=== PATIENT | female | born 1965 | race Caucasian/White ===

== ENCOUNTER 2024-09-24 18:11 | Inpatient (IN) | payer BC ==
[~2024-09-24] VITALS: Ht 165.1 cm; Wt 66.7 kg
[2024-09-24] MEDS ORDERED: ADENOSINE 6 MG/2 ML SYR IV ONE ×2 (18:28→19:10)
[2024-09-24] MEDS ORDERED: OXYMETAZOLINE NASAL 0.05% 15 ML SPRAY NS ONE (18:40)
[2024-09-24] MEDS ORDERED: TRANEXAMIC ACID 1,000 MG/10 ML VIAL ONE (18:41)
[2024-09-24] MEDS ORDERED: LIDOCAINE 4% TOPICAL 50 ML BOTTLE ONE (18:43)
[2024-09-24] MEDS: OXYMETAZOLINE NASAL 0.05% 15 ML SPRAY NS ONE (18:48)
[2024-09-24] MEDS: IV NORMAL SALINE 1000 ML BAG IV ONE (18:48)
[2024-09-24] MEDS: TRANEXAMIC ACID 1,000 MG/10 ML VIAL IR ONE (18:48)
[2024-09-24] MEDS: LIDOCAINE 4% TOPICAL 50 ML BOTTLE TP ONE (18:49)
[2024-09-24] MEDS: ADENOSINE 6 MG/2 ML SYR IV ONE ×2 (18:49→19:35)
[2024-09-24] MEDS ORDERED: PANTOPRAZOLE SODIUM 40 MG VIAL ONE (18:55)
[2024-09-24] MEDS ORDERED: TRAZ-257 PO (19:05)
[2024-09-24] MEDS ORDERED: CHOL5POW PO (19:05)
[2024-09-24] MEDS ORDERED: BUSP5TAB3 PO (19:05)
[2024-09-24] MEDS ORDERED: ACET325T53 PO (19:05)
[2024-09-24] MEDS ORDERED: ALBU2.5V38 NEB (19:05)
[2024-09-24] MEDS ORDERED: THIA100T88 PO (19:05)
[2024-09-24] MEDS ORDERED: FOLI1TAB27 PO (19:05)
[2024-09-24] MEDS ORDERED: PANT40TA49 PO (19:05)
[2024-09-24] MEDS ORDERED: FURO-151 PO (19:05)
[2024-09-24] MEDS ORDERED: LACT10SO58 PO (19:05)
[2024-09-24] MEDS ORDERED: ZINC OXIDE 10% TP (19:05)
[2024-09-24] MEDS ORDERED: ONDA4TAB5 PO (19:05)
[2024-09-24] MEDS ORDERED: MAGN400T52 PO (19:05)
[2024-09-24] MEDS ORDERED: RIFA550T PO (19:05)
[2024-09-24] MEDS ORDERED: LACT-179 PO (19:05)
[2024-09-24] MEDS ORDERED: SPIR50TA5 PO (19:05)
[2024-09-24 19:07] LABS: CALCIUM 8.9 mg/dL (8.5-10.1); CARBON DIOXIDE 23 mmol/L (21-32); CHLORIDE 100 mmol/L (98-107); CREATININE 1.1 mg/dL (0.6-1.3); GLUCOSE 136 mg/dL (74-106); POTASSIUM 3.7 mmol/L (3.5-5.1); SODIUM SERUM 135 mmol/L (136-145); UREA NITROGEN, BLOOD 11 mg/dL (7-18)
[2024-09-24] MEDS: PANTOPRAZOLE SODIUM IV 80 MG in IV DEXTROSE 5% 100 ML IV ONE (19:10)
[2024-09-24 19:12] LABS: BASOPHILS % (AUTO) 0.5 % (0.0-2.0); EOSINOPHILS # (AUTO) 0.1 K/uL (0.0-0.7); EOSINOPHILS % (AUTO) 1.3 % (0.0-7.0); LYMPHOCYTES # (AUTO) 1.1 K/uL (0.8-4.8); LYMPHOCYTES % (AUTO) 12.4 % (20.5-51.5); MEAN CORPUSCULAR HEMOGLOBIN 30.5 uug (24.7-32.8); MEAN CORPUSCULAR HGB CONC 35 g/dL (32.3-35.6); MEAN CORPUSCULAR VOLUME 88.4 fL (75.5-95.3); MONOCYTES # (AUTO) 1.2 K/uL (0.1-1.30); MONOCYTES % (AUTO) 14.4 % (0.0-11.0); NEUTROPHILS # (AUTO) 6.1 K/uL (1.8-8.9); NEUTROPHILS % (AUTO) 71.4 % (38.5-71.5); PLATELET COUNT (AUTO) 159 K/uL (179-408); RED CELL DISTRIBUTION WIDTH 19.2 % (12.3-17.7); WHITE BLOOD COUNT (AUTO) 8.6 K/uL (3.8-11.8)
[2024-09-24 19:14] LABS: HEMATOCRIT 19.3 % (31.2-41.9); HEMOGLOBIN 6.7 g/dL (10.9-14.3); RED BLOOD CELL COUNT(AUTO) 2.18 MIL/uL (3.63-4.92)
[2024-09-24 19:16] LABS: ALANINE AMINOTRANSFERASE 11 U/L (14-59); ALBUMIN 2.4 g/dL (3.4-5.0); ALKALINE PHOSPHATASE 134 U/L (50-136); ASPARTATE AMINOTRANSFERASE 48 U/L (15-37); BILIRUBIN,DIRECT 1.9 mg/dL (0.0-0.2); BILIRUBIN,TOTAL 3.8 mg/dL (0.2-1.0); LIPASE 238 U/L (16-77); TOTAL PROTEIN, SERUM 5.7 g/dL (6.4-8.2)
[2024-09-24 19:30] LABS: LACTIC ACID 2.8 mmol/L (0.4-2.0)
[2024-09-24] MEDS ORDERED: levoFLOXacin 750MG/D5W 150 ML IV ONE (20:52)
[2024-09-24] MEDS: levoFLOXacin 750 MG/D5W 150 ML PIGGYBACK IV ONE (21:10)
[2024-09-24] MEDS ORDERED: REMEDY ESSENTIAL ZINC PASTE 113 GM TP PRN (21:15)
[2024-09-24] MEDS ORDERED: ONDANSETRON 4 MG/2 ML VIAL IV PRN (21:15)
[2024-09-24 22:28] LABS: HEMATOCRIT 16.8 % (31.2-41.9); HEMOGLOBIN 5.8 g/dL (10.9-14.3)
[2024-09-24 23:29] VITALS: O2SAT 100
[2024-09-25] VITALS (8 sets, daily range): BP systolic 98–117; BP diastolic 47–84; TEMP 98–99.5; O2SAT 96–100
[2024-09-25] MEDS ORDERED: OCTREOTIDE ACETATE 500 MCG/1 ML VIAL ONE (01:49)
[2024-09-25] MEDS: OCTREOTIDE ACETATE DRIP 1,250 MCG in IV NORMAL SALINE 250 ML IV ONE (03:14)
[2024-09-25] MEDS: diphenhydrAMINE 25 MG CAP PO PRN (03:55)
[2024-09-25] MEDS: PANTOPRAZOLE SODIUM 40 MG TABLET.DR PO SCH (08:34)
[2024-09-25 09:18] LABS: BASOPHILS % (AUTO) 0.6 % (0.0-2.0); EOSINOPHILS # (AUTO) 0.2 K/uL (0.0-0.7); EOSINOPHILS % (AUTO) 2.3 % (0.0-7.0); HEMATOCRIT 25.4 % (31.2-41.9); HEMOGLOBIN 8.8 g/dL (10.9-14.3); LYMPHOCYTES # (AUTO) 1.4 K/uL (0.8-4.8); LYMPHOCYTES % (AUTO) 19.6 % (20.5-51.5); MEAN CORPUSCULAR HEMOGLOBIN 30.4 uug (24.7-32.8); MEAN CORPUSCULAR HGB CONC 35 g/dL (32.3-35.6); MEAN CORPUSCULAR VOLUME 87.2 fL (75.5-95.3); MONOCYTES # (AUTO) 1.1 K/uL (0.1-1.30); MONOCYTES % (AUTO) 15.3 % (0.0-11.0); NEUTROPHILS # (AUTO) 4.4 K/uL (1.8-8.9); NEUTROPHILS % (AUTO) 62.2 % (38.5-71.5); PLATELET COUNT (AUTO) 146 K/uL (179-408); RED BLOOD CELL COUNT(AUTO) 2.91 MIL/uL (3.63-4.92); RED CELL DISTRIBUTION WIDTH 16.9 % (12.3-17.7); WHITE BLOOD COUNT (AUTO) 7.1 K/uL (3.8-11.8)
[2024-09-25 09:24] LABS: DIFFERENTIAL COMMENT 1
[2024-09-25 09:32] LABS: ALBUMIN 2.4 g/dL (3.4-5.0); CALCIUM 8.6 mg/dL (8.5-10.1); CREATININE 1.1 mg/dL (0.6-1.3); MAGNESIUM 1.3 mg/dL (1.8-2.4); PHOSPHOROUS 3.6 mg/dL (2.5-4.9); POTASSIUM 4.1 mmol/L (3.5-5.1); TOTAL PROTEIN, SERUM 5.5 g/dL (6.4-8.2)
[2024-09-25] MEDS ORDERED: NEOM1OIN19 TP (09:52)
[2024-09-25] MEDS: diphenhydrAMINE 50 MG/1 ML VIAL IV PRN (11:32)
[2024-09-25] MEDS: IV NS 1000 ML 1,000 ML IV PRN (11:33)
[2024-09-25 11:43] LABS: HEMATOCRIT 23.7 % (31.2-41.9); HEMOGLOBIN 8.4 g/dL (10.9-14.3)
[2024-09-25] MEDS: GOLYTELY 4000 ML BOTTLE PO ONE (11:48)
[2024-09-25 13:36] LABS: BAND % (MANUAL) 4 % (0-10); NEUTROPHILS % (MANUAL) 63 % (42-75)
[2024-09-25 13:37] LABS: ANISOCYTOSIS 1+; LYMPHOCYTES % (MANUAL) 17 % (20-40); MONOCYTES % (MANUAL) 16 % (2-10); PLATELET ESTIMATE DECREASED
[2024-09-25] MEDS ORDERED: ALBUTEROL SULFATE 2.5 MG/3 ML NEBU NEB PRN (13:45)
[2024-09-25] MEDS ORDERED: PIPERACILLIN SODIUM/TAZOBACTAM 3.375 G in IV DEXTROSE 5% 50 ML IV SCH (14:00)
[2024-09-25] MEDS: PIPERACILLIN SODIUM/TAZOBACTAM 3.375 G in IV DEXTROSE 5% 100 ML IV SCH (15:52)
[2024-09-25 15:59] LABS: HEMATOCRIT 22.7 % (31.2-41.9); HEMOGLOBIN 7.9 g/dL (10.9-14.3)
[2024-09-25] MEDS: busPIRone 5 MG TABLET PO SCH (17:20)
[2024-09-25] MEDS: RIFAXIMIN 550 MG TABLET PO SCH (17:20)
[2024-09-25] MEDS: PANTOPRAZOLE SODIUM 40 MG VIAL IV SCH (20:40)
[2024-09-25] MEDS: TRAZODONE 100 MG TABLET PO SCH (20:45)
[2024-09-25] MEDS: ACETAMINOPHEN 325 MG TABLET PO PRN (21:40)
[2024-09-26] VITALS (7 sets, daily range): BP systolic 118–134; BP diastolic 64–71; TEMP 97.9–98.2; O2SAT 95–100
[2024-09-26 07:28] LABS: CALCIUM 8.4 mg/dL (8.5-10.1); MAGNESIUM 1.4 mg/dL (1.8-2.4); PHOSPHOROUS 3.5 mg/dL (2.5-4.9); POTASSIUM 2.9 mmol/L (3.5-5.1)
[2024-09-26] MEDS: LACTULOSE 20 G/30 ML LIQUID UDC PO SCH (09:32)
[2024-09-26] MEDS: FOLIC ACID 1 MG TABLET PO SCH (09:33)
[2024-09-26] MEDS: FUROSEMIDE 40 MG TABLET PO SCH (09:33)
[2024-09-26] MEDS: SPIRONOLACTONE 50 MG TABLET PO SCH (09:36)
[2024-09-26] MEDS: THIAMINE HCL 100 MG TABLET PO SCH (09:36)
[2024-09-26] MEDS: POTASSIUM CHLORIDE 20 MEQ POWDER PACKET PO ONE ×2 (09:36→12:55)
[2024-09-26] MEDS: MAGNESIUM SULFATE/D5W 100 ML IV SCH (10:24)
[2024-09-26 14:58] LABS: ALBUMIN 2.5 g/dL (3.4-5.0); CALCIUM 8.4 mg/dL (8.5-10.1); CREATININE 1.1 mg/dL (0.6-1.3); TOTAL PROTEIN, SERUM 5.7 g/dL (6.4-8.2)
[2024-09-26] MEDS ORDERED: PROPOFOL 200 MG/20 ML BOTTLE ONE (16:51)
[2024-09-26] MEDS: levoFLOXacin 500 MG/D5W 500 MG in PREMIXED 1 EACH IV SCH (18:30)
[2024-09-27 01:41] VITALS: O2SAT 98
[2024-09-27 06:00] VITALS: BP 135/71; TEMP 98.8; O2SAT 100
[2024-09-27 06:16] LABS: BASOPHILS % (AUTO) 0.5 % (0.0-2.0); EOSINOPHILS # (AUTO) 0.2 K/uL (0.0-0.7); HEMATOCRIT 23.3 % (31.2-41.9); HEMOGLOBIN 8.3 g/dL (10.9-14.3); LYMPHOCYTES # (AUTO) 0.9 K/uL (0.8-4.8); LYMPHOCYTES % (AUTO) 12.6 % (20.5-51.5); MEAN CORPUSCULAR HEMOGLOBIN 31.3 uug (24.7-32.8); MEAN CORPUSCULAR HGB CONC 36 g/dL (32.3-35.6); MEAN CORPUSCULAR VOLUME 88.3 fL (75.5-95.3); MONOCYTES % (AUTO) 13.4 % (0.0-11.0); NEUTROPHILS # (AUTO) 5.1 K/uL (1.8-8.9); NEUTROPHILS % (AUTO) 70.5 % (38.5-71.5); PLATELET COUNT (AUTO) 174 K/uL (179-408); RED BLOOD CELL COUNT(AUTO) 2.64 MIL/uL (3.63-4.92); RED CELL DISTRIBUTION WIDTH 18.2 % (12.3-17.7); WHITE BLOOD COUNT (AUTO) 7.2 K/uL (3.8-11.8)
[2024-09-27 06:17] LABS: DIFFERENTIAL COMMENT 1
[2024-09-27 06:33] LABS: CALCIUM 8.5 mg/dL (8.5-10.1); CREATININE 1.1 mg/dL (0.6-1.3); MAGNESIUM 1.8 mg/dL (1.8-2.4); PHOSPHOROUS 3.6 mg/dL (2.5-4.9); POTASSIUM 2.9 mmol/L (3.5-5.1)
[2024-09-27 07:05] VITALS: BP 135/71; TEMP 98.8; O2SAT 100
[2024-09-27] MEDS: POTASSIUM CHLORIDE 10 MEQ TAB.PRT.SR PO SCH (10:28)
[2024-09-27 10:58] VITALS: BP 117/65; TEMP 98.2; O2SAT 98
[2024-09-27] MEDS: PROPRANOLOL HCL 10 MG TABLET PO SCH (13:51)
[2024-09-27] MEDS: FUROSEMIDE 40 MG TABLET PO SCH (13:51)
[2024-09-27] MEDS: OCTREOTIDE ACETATE DRIP 500 MCG in IV NORMAL SALINE 99 ML IV SCH (14:17)
[2024-09-27 15:43] VITALS: BP 119/69; TEMP 98; O2SAT 100
[2024-09-27 19:25] VITALS: BP 100/49; TEMP 97.6; O2SAT 99
[2024-09-28] VITALS (8 sets, daily range): BP systolic 84–101; BP diastolic 26–53; TEMP 97.9–99.4; O2SAT 93–100
[2024-09-28 07:12] LABS: BASOPHILS % (AUTO) 0.6 % (0.0-2.0); DIFFERENTIAL COMMENT 0; EOSINOPHILS # (AUTO) 0.3 K/uL (0.0-0.7); EOSINOPHILS % (AUTO) 4.4 % (0.0-7.0); HEMATOCRIT 22.8 % (31.2-41.9); LYMPHOCYTES % (AUTO) 13.5 % (20.5-51.5); MEAN CORPUSCULAR HEMOGLOBIN 31.4 uug (24.7-32.8); MEAN CORPUSCULAR HGB CONC 35 g/dL (32.3-35.6); MONOCYTES % (AUTO) 13.4 % (0.0-11.0); NEUTROPHILS # (AUTO) 5.1 K/uL (1.8-8.9); NEUTROPHILS % (AUTO) 68.1 % (38.5-71.5); PLATELET COUNT (AUTO) 164 K/uL (179-408); RED BLOOD CELL COUNT(AUTO) 2.56 MIL/uL (3.63-4.92); RED CELL DISTRIBUTION WIDTH 18.5 % (12.3-17.7); WHITE BLOOD COUNT (AUTO) 7.5 K/uL (3.8-11.8)
[2024-09-28 07:17] LABS: MAGNESIUM 1.2 mg/dL (1.8-2.4)
[2024-09-28 07:29] LABS: POTASSIUM 2.7 mmol/L (3.5-5.1)
[2024-09-28] MEDS ORDERED: POTASSIUM CHLORIDE 50 ML IV SCH (09:00)
[2024-09-28 09:25] LABS: LYMPHOCYTES % (MANUAL) 15 % (20-40); NEUTROPHILS % (MANUAL) 74 % (42-75)
[2024-09-28] MEDS: POTASSIUM CHLORIDE 20 MEQ TAB.PRT.SR PO ONE (09:25)
[2024-09-28 09:26] LABS: ANISOCYTOSIS 2+; EOSINOPHILS % (MANUAL) 2 % (0-8); MONOCYTES % (MANUAL) 9 % (2-10); PLATELET ESTIMATE DECREASED
[2024-09-28] MEDS: POTASSIUM CHLORIDE 20 MEQ in IV NS 1000 ML 1,000 ML IV SCH (09:26)
[2024-09-28] MEDS: MAGNESIUM SULFATE/D5W 100 ML IV SCH (09:27)
[2024-09-28] MEDS ORDERED: LIDOCAINE HCL 1% 20 ML VIAL IJ PRN (10:30)
[2024-09-28] MEDS ORDERED: CEFTRIAXONE 2 G VIAL IM SCH (10:45)
[2024-09-28] MEDS: CEFTRIAXONE 2 G in IV DEXTROSE 5% 100 ML IV SCH (15:52)
[2024-09-28 20:05] LABS: TOTAL VOLUME,BODY FLUID 6700 mL
[2024-09-28 20:06] LABS: WBC, BODY FLUID 66 /cu. mm (0-200/cu.mm)
[2024-09-28 20:07] LABS: TOTAL PROTEIN,PERITONEAL FLUID 0.6
[2024-09-28 21:31] LABS: MONOCYTES,BODY FLUID 47 %; POLYNUCLEAR, BODY FLUID 15 % (0-25 %)
[2024-09-29 04:14] VITALS: O2SAT 98
[2024-09-29 06:40] VITALS: BP 100/40; TEMP 99.1; O2SAT 100
[2024-09-29 06:41] LABS: BASOPHILS # (AUTO) 0.1 K/UL (0.0-0.2); BASOPHILS % (AUTO) 0.9 % (0.0-2.0); EOSINOPHILS # (AUTO) 0.3 K/uL (0.0-0.7); EOSINOPHILS % (AUTO) 4.3 % (0.0-7.0); HEMOGLOBIN 8.5 g/dL (10.9-14.3); LYMPHOCYTES # (AUTO) 0.9 K/uL (0.8-4.8); LYMPHOCYTES % (AUTO) 12.4 % (20.5-51.5); MEAN CORPUSCULAR HEMOGLOBIN 31.7 uug (24.7-32.8); MEAN CORPUSCULAR HGB CONC 35 g/dL (32.3-35.6); MONOCYTES # (AUTO) 0.7 K/uL (0.1-1.30); MONOCYTES % (AUTO) 10.4 % (0.0-11.0); PLATELET COUNT (AUTO) 196 K/uL (179-408); RED BLOOD CELL COUNT(AUTO) 2.67 MIL/uL (3.63-4.92); RED CELL DISTRIBUTION WIDTH 19.2 % (12.3-17.7); WHITE BLOOD COUNT (AUTO) 6.9 K/uL (3.8-11.8)
[2024-09-29 06:45] LABS: DIFFERENTIAL COMMENT 1
[2024-09-29 06:50] LABS: CALCIUM 7.7 mg/dL (8.5-10.1); MAGNESIUM 1.7 mg/dL (1.8-2.4); PHOSPHOROUS 3.2 mg/dL (2.5-4.9); POTASSIUM 3.4 mmol/L (3.5-5.1)
[2024-09-29 08:35] VITALS: O2SAT 99
[2024-09-29] MEDS ORDERED: IV NS 1000 ML 1,000 ML IV PRN (10:00)
[2024-09-29] MEDS ORDERED: PROP10TA68 PO (10:34)
[2024-09-29] MEDS: POTASSIUM CHLORIDE 20 MEQ TAB.PRT.SR PO ONE (10:40)
[2024-09-29] MEDS: MAGNESIUM OXIDE 400 MG TABLET PO ONE (10:40)
[2024-09-29 11:05] VITALS: BP 101/45; TEMP 98.3; O2SAT 99
== END 2024-09-29 23:31 | DRG 280 ==
LOC: ER 18:49 → TELE3 21:15 → MEDSURG3 09-25 10:10
PROVIDERS: ADMIT Nurse Practitioner Acute Care; ATTEND Nurse Practitioner Acute Care
PROC: 30233N1 Transfusion of Nonautologous Red Blood Cells into Peripheral Vein, Percutaneous Approach (ICD-10-PCS; 2024-09-24)
PROC: 093K7ZZ Control Bleeding in Nasal Mucosa and Soft Tissue, Via Natural or Artificial Opening (ICD-10-PCS; 2024-09-24)
PROC: 0DBN8ZX Excision of Sigmoid Colon, Via Natural or Artificial Opening Endoscopic, Diagnostic (ICD-10-PCS; principal; 2024-09-26 15:30)
PROC: 05HB33Z Insertion of Infusion Device into Right Basilic Vein, Percutaneous Approach (ICD-10-PCS; principal; 2024-09-26 15:30)
PROC: 06L38CZ Occlusion of Esophageal Vein with Extraluminal Device, Via Natural or Artificial Opening Endoscopic (ICD-10-PCS; principal; 2024-09-26 15:30)
PROC: 0W9G3ZX Drainage of Peritoneal Cavity, Percutaneous Approach, Diagnostic (ICD-10-PCS; 2024-09-28)
DX: K70.31 Alcoholic cirrhosis of liver with ascites (principal); I85.11 Secondary esophageal varices with bleeding; D68.9 Coagulation defect, unspecified; E87.20 Acidosis, unspecified; D62 Acute posthemorrhagic anemia; I95.9 Hypotension, unspecified; D69.6 Thrombocytopenia, unspecified; D63.8 Anemia in other chronic diseases classified elsewhere; R04.0 Epistaxis; K76.82 Hepatic encephalopathy; I47.10 Supraventricular tachycardia, unspecified; K76.6 Portal hypertension; K64.8 Other hemorrhoids; F10.21 Alcohol dependence, in remission; K31.89 Other diseases of stomach and duodenum; K57.30 Diverticulosis of large intestine without perforation or abscess without bleeding; K63.5 Polyp of colon; Z66 Do not resuscitate; Z88.0 Allergy status to penicillin; Z88.8 Allergy status to other drugs, medicaments and biological substances; F32.A Depression, unspecified; J90 Pleural effusion, not elsewhere classified; J98.11 Atelectasis; F41.9 Anxiety disorder, unspecified; Z79.899 Other long term (current) drug therapy
CPT/HCPCS: 36415; 71045; 76705; 83605; 83690; 83735; 83986; 84100; 84484; 85018; 85025; 85610; 85730; 86850; 86900; 86901; 86920; 87040; 93005; 93307; A4606; A4663; G0378; J0153; J0696; J1200; J1956; J2354; J2470; J2543; J3475; J3480; J3490; J7040; Q0163